=== PATIENT | male | born 2005 | race African-American/Black ===

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

== ENCOUNTER 2023-01-30 22:41 | Emergency (ER) | payer OTHER ==
[2023-01-30] MEDS ORDERED: Ondansetron ODT 4 MG TAB ONE (23:14)
== END 2023-01-30 23:57 | disposition home or self-care (01) ==
LOC: ERS 22:41
DX: B34.9 Viral infection, unspecified (principal)
CPT/HCPCS: 99283; Q0162

== ENCOUNTER 2023-06-16 08:58 | Emergency (ER) | payer OTHER ==
[2023-06-16] MEDS ORDERED: Acetaminophen 500 MG TAB ONE (09:45)
[2023-06-16] MEDS ORDERED: Iopamidol-370 76% 500 ML MDV (1 ML CHARGE) ONE (10:02)
[2023-06-16] MEDS ORDERED: Ondansetron ODT 4 MG TAB ONE (10:40)
[2023-06-16 11:07] LABS: #Monocytes 0.6 thou/uL (0.11-0.59); #Neutrophils 5.7 thou/uL (1.40-6.50); %Basophils 0.3 % (0.0-1.0); %Lymphocytes 8.1 % (28.0-48.0); %Neutrophils 83.3 % (31.0-61.0); Hemoglobin 14.4 g/dL (14.0-18.0); Mean Corpuscular HGB CONC 33.6 g/dL (32.0-36.0); Mean Corpuscular Hemoglobin 30.4 pg (25.0-35.0); Mean Corpuscular Volume 90.7 fl (78.0-98.0); Platelet Count 171 10x3/uL (130-400); RBC Distribution Width 11.8 % (11.5-14.5); Red Blood Cell (RBC) Count 4.73 mill/uL (4.00-5.20); White Blood Cell (WBC) Count 6.9 10x3/uL (4.8-10.8)
[2023-06-16 11:40] LABS: SARS-CoV-2 NAA Rapid Test Not Detected (NotDetected)
[2023-06-16 11:44] LABS: ALT (SGPT) 18 U/L (8-55); AST (SGOT) 28 U/L (10-45); Albumin 4.4 g/dL (3.5-5.0); Alkaline Phosphatase 57 U/L (50-130); Anion Gap 12 mmol/L (10-20); BUN (Urea Nitrogen) 14 mg/dL (8.4-21.0); Bilirubin, Total 0.4 mg/dL (0.2-1.2); Calc. Creatinine Clearance 0 mL/min (70-130); Carbon Dioxide 24 mmol/L (22-29); Chloride 104 mmol/L (98-107); Estimated GFR 97; Globulin 2.7 g/dL (2.4-3.5); Glucose 115 mg/dL (70-105); Lipase 15 U/L (8-78); Potassium 3.8 mmol/L (3.5-5.1); Protein, Total 7.1 g/dL (6.0-8.3); Sodium 136 mmol/L (136-145)
[2023-06-16] MEDS ORDERED: Ketorolac Tromethamine 30 MG/ML VIAL ONE (12:12)
[2023-06-16] MEDS ORDERED: Ondansetron PF 4 MG/2 ML Vial ONE (12:12)
== END 2023-06-16 14:46 | disposition home or self-care (01) ==
LOC: ERS 08:58
DX: K52.9 Noninfective gastroenteritis and colitis, unspecified (principal); Z20.822 Contact with and (suspected) exposure to COVID-19
CPT/HCPCS: 36415; 74177; 80053; 83690; 85025; 94760; 96361; 96374; 96375; J1885; J2405; Q0162; Q9967

== ENCOUNTER 2023-12-04 17:20 | Emergency (ER) | payer BC, SELFPAY ==
[2023-12-04] MEDS ORDERED: Ibuprofen 800 MG TAB ONE (19:20)
[2023-12-04 20:18] LABS: SARS-CoV-2 NAA Rapid Test Not Detected (NotDetected)
== END 2023-12-04 20:46 | disposition home or self-care (01) ==
LOC: ERS 17:20
DX: J10.1 Influenza due to other identified influenza virus with other respiratory manifestations (principal); F17.290 Nicotine dependence, other tobacco product, uncomplicated
CPT/HCPCS: 0241U; 99283